=== PATIENT | male | born 1980 | race Caucasian/White ===

== ENCOUNTER 2022-04-19 01:58 | Emergency (ER) | payer OTHER ==
[~2022-04-19] VITALS: Ht 190.5 cm; Wt 136.1 kg
[2022-04-19 01:59] VITALS: BP 136/80
--- NOTE | 2022-04-19 02:00 | NUR ---
Patient taken to Chair C.
--- NOTE | 2022-04-19 02:15 | NUR ---
Dr. Zendejas examining patient.
[2022-04-19 02:27] VITALS: BP 136/80
--- NOTE | 2022-04-19 02:27 | NUR ---
Patient D/C to custody.
== END 2022-04-19 02:27 ==
LOC: MED 01:58
DX: Z04.1 Encounter for examination and observation following transport accident (principal); Z02.89 Encounter for other administrative examinations; V89.2XXA Person injured in unspecified motor-vehicle accident, traffic, initial encounter; Y93.89 Activity, other specified; Y92.410 Unspecified street and highway as the place of occurrence of the external cause; Y99.8 Other external cause status
CPT/HCPCS: 99283